=== PATIENT | female | born 2000 | race Two or more races ===

== ENCOUNTER 2024-06-28 11:31 | Emergency (ER) | payer MEDICAID ==
[~2024-06-28] VITALS: Ht 162.6 cm; Wt 76.2 kg
[2024-06-28] MEDS: IV NS 0.9% 1,000 ML BAG IV ONE (12:30)
[2024-06-28] MEDS ORDERED: LORAZEPAM 0.5 MG TABLET ONE (12:46)
[2024-06-28] MEDS: LORAZEPAM 1 MG TABLET PO ONE (12:55)
[2024-06-28] MEDS ORDERED: PROP20TA7 PO (13:21)
[2024-06-28 13:23] LABS: BASOPHILS % (AUTO) 0.3 % (0.0-2.0); EOSINOPHILS # (AUTO) 0.1 K/uL (0.0-0.7); EOSINOPHILS % (AUTO) 0.4 % (0.0-6.0); HEMATOCRIT 40 % (33-45); HEMOGLOBIN 13.1 g/dL (11.5-14.8); LYMPHOCYTES # (AUTO) 1.3 K/uL (0.8-4.8); MEAN CORPUSCULAR HEMOGLOBIN 29 PG (26.0-33.0); MEAN CORPUSCULAR HGB CONC 33 g/dl (31.0-36.0); MEAN CORPUSCULAR VOLUME 88 fL (82-100); MONOCYTES # (AUTO) 0.4 K/uL (0.1-1.30); MONOCYTES % (AUTO) 2.7 % (2.0-12.0); NEUTROPHILS # (AUTO) 12.9 K/uL (1.8-8.9); NEUTROPHILS % (AUTO) 87.6 % (43.0-81.0); PLATELET COUNT (AUTO) 364 K/uL (150-450); RED BLOOD CELL COUNT(AUTO) 4.52 MIL/uL (4.0-5.2); RED CELL DISTRIBUTION WIDTH 12.8 % (11.5-15.0); WHITE BLOOD COUNT (AUTO) 14.7 K/uL (4.3-11.0)
[2024-06-28 13:25] LABS: CALCIUM, SERUM 9.2 mg/dL (8.5-10.1); CREATININE 0.6 mg/dL (0.6-1.3); POTASSIUM 4.3 mmol/L (3.5-5.1)
[2024-06-28 14:22] VITALS: BP 129/80; TEMP 98.6; O2SAT 98
[2024-06-28 14:32] LABS: PREGNANCY TEST URINE QUAL NEGATIVE (NEGATIVE)
== END 2024-06-28 14:24 | disposition home or self-care (01) ==
LOC: ER 11:35
DX: R00.2 Palpitations (principal); F41.0 Panic disorder [episodic paroxysmal anxiety]; R00.0 Tachycardia, unspecified
CPT/HCPCS: 99284; 96360; 93005; 85025; 80048; 84703; 36415; J7030; A4223